=== PATIENT | female | born 1985 | race African-American/Black ===

== ENCOUNTER 2020-09-30 16:16 | Outpatient (CLI) | payer OTHER, SELFPAY | END 2020-09-30 16:17 | disposition home or self-care (01) | LOC: ANHLAB 16:19 | PROVIDERS: Visit Provider Obstetrics & Gynecology | DX: L65.9 Nonscarring hair loss, unspecified (principal); N95.1 Menopausal and female climacteric states | CPT/HCPCS: 36415; 83001; 86038; 86039 ==

== ENCOUNTER 2025-10-01 12:54 | Emergency (ER) | payer BC, SELFPAY ==
[2025-10-01 13:13] VITALS: BP 166/95; PULSE 103; RESP 16; TEMP 36.3; O2SAT 100
[2025-10-01 14:16] LABS: EDCOVIDSCREEN Negative (Negative); EDINFLUASCREEN Negative (Negative); EDINFLUBSCREEN Negative (Negative); EDSTREPNEGPOS1 Negative (Negative)
--- NOTE | 2025-10-01 14:22 | ED.URI ---
HPI - URI/Sore Throat General Chief Complaint: Dental/Oral Stated Complaint: Headache/Sore Throat Time Seen by Provider: 10/01/25 14:14 Source: patient and RN notes reviewed Mode of arrival: ambulatory Limitations: no limitations History of Present Illness HPI Narrative: 40-year-old female patient presents today with a 6 day history of sore throat, postnasal drip, dry cough, body aches, headache, fatigue. She was exposed to COVID by a family member several days ago. Denies fever, nasal congestion, shortness of breath. She has tried Tylenol and naproxen with mild relief and currently rates her discomfort 8/10. No history of asthma or COPD. She is also complaining of right upper dental pain due to a broken tooth for several months. The pain has returned 2 days ago. She has to wait 3 more weeks for insurance to make a dental appointment due to a new job. Related Data Home Medications ?Medication ?Instructions ?Recorded ?Confirmed ?Last Taken ?Type cholecalciferol (vitamin D3) 1,250 1,250 mcg PO WEEKLY 09/30/20 10/02/20 Unknown History mcg (50,000 unit) capsule dextroamphetamine-amphetamine 20 20 mg PO DAILY 09/30/20 10/02/20 Unknown History mg tablet (Adderall) hydrochlorothiazide 12.5 mg capsule mg 10/01/25 Unknown History valacyclovir 500 mg tablet mg 10/01/25 Unknown History Allergies Allergy/AdvReac Type Severity Reaction Status Date / Time RAW TOMATOES Allergy Mild HIVES Uncoded 07/18/13 16:04 METOCLOPRAMIDE HCL Allergy Unknown feels Uncoded 06/30/14 22:29 like crwling out of skin PMFSH Past Medical History Medical History Miscarriage History of umbilical hernia History of hypertension Depression Anemia Surgical History Surgical History History of tubal ligation History of dilation and curettage History of colposcopy History of 3 sections Previous section x 3 Social History Social History Smoking status: Never smoker Second hand tobacco smoke exposure: No Alcohol intake: never Comments At time of signature, I have reviewed and agree with nursing past medical, surgical, social and family history unless otherwise noted. Please see nursing chart for further information. There is no relevant family history pertinent to the presenting complaint Exam Narrative: GENERAL: Mildly ill-appearing, well-nourished, and in no acute distress. HEAD: Normocephalic, atraumatic. EYES: EOMI. No redness or drainage. Conjunctivae normal. ENT: Mucous membranes pink and moist. Nares normal. No rhinorrhea. TMs normal bilaterally. Throat normal. Uvula midline. Tooth 3 is broken off and brown in color. No surrounding edema or erythema. NECK: Normal AROM. Supple. No lymphadenopathy. CHEST: No respiratory distress. Clear to auscultation. HEART: Regular rate and rhythm. No murmur appreciated. EXTREMITIES: Normal range of motion. No edema. SKIN: Warm, dry, no rash. Capillary refill normal. Normal skin turgor. NEURO: No focal deficits. Alert and oriented x3. Gait steady. PSYCH: Normal affect. No signs of depression or anxiety. Course Course Level of Care: Express Care Visit Vital Signs Vital signs: Vital Signs Temperature 97.4 F L 10/01/25 13:13 Pulse Rate 103 H 10/01/25 13:13 Respiratory Rate 16 10/01/25 13:13 Blood Pressure 166/95 H 10/01/25 13:13 Pulse Oximetry 100 10/01/25 13:13 Temperature 97.4 F L 10/01/25 13:13 Pulse Rate 103 H 10/01/25 13:13 Respiratory Rate 16 10/01/25 13:13 Blood Pressure 166/95 H 10/01/25 13:13 Pulse Oximetry 100 10/01/25 13:13 Reviewed MDM - URI/Sore Throat MDM Narrative Medical decision making narrative: 40-year-old female patient presents today with a 6 day history of sore throat, postnasal drip, dry cough, body aches, headache, fatigue. She was exposed to COVID by a family member several days ago. Denies fever, nasal congestion, shortness of breath. She has tried Tylenol and naproxen with mild relief and currently rates her discomfort 8/10. No history of asthma or COPD. She is also complaining of right upper dental pain due to a broken tooth for several months. The pain has returned 2 days ago. She has to wait 3 more weeks for insurance to make a dental appointment due to a new job. Upon exam, patient is mildly ill appearing with tooth 3 Broken in brown in color. Negative influenza, COVID, and rapid strep test. Strep culture pending. Sick Symptoms likely viral in etiology. Discussed [id number] medication use and duration of illness. Patient will be sent over a 10 day course of amoxicillin for her broken and likely infected tooth. Anticipatory guidance given. Patient will make a dental appointment as soon as she has dental insurance. Vital signs stable. Differential Diagnosis Differential diagnosis: Likely upper respiratory infection, viral infection, influenza and other (Strep throat, COVID-19, dental fracture, dental abscess) Lab Data Attestation: I reviewed the patient's lab results. Labs: Lab Results 10/01/25 Range/Units 13:07 POC Influenza A Ag Negative (Negative) POC Influenza B Ag Negative (Negative) POC SARS CoV-2 Ag Negative (Negative) POC Grp A Strep Screen Negative (Negative) Critical Care Time Critical Care Time Critical Care Time: No Discharge Plan Discharge Clinical Impression: Infected tooth Upper respiratory infection Qualifiers: URI type: unspecified URI Qualified Code(s): J06.9 - Acute upper respiratory infection, unspecified Patient Disposition: Home Condition: Stable Instructions: Antibiotic Form, Upper Respiratory Infection (DC) Additional Instructions: Your sick symptoms are likely due to a viral illness, which is not treated with antibiotics. Virus symptoms can last for up to 7-10days. Take Tylenol or ibuprofen for pain or fever. Rest and stay hydrated. Follow up with your PCP in 5 days if symptoms are not improving. Go to the ER immediately if you develop shortness of breath, difficulty swallowing, or any other concerning symptoms. Please take the amoxicillin as prescribed for your dental pain/infection. Follow-up with a dentist as soon as possible for further evaluation and treatment. Patient Language: Portuguese Prescriptions: New amoxicillin 875 mg tablet 875 mg PO Q12H 10 Days Qty: 20 0RF No Action valacyclovir 500 mg tablet hydrochlorothiazide 12.5 mg capsule dextroamphetamine-amphetamine [Adderall] 20 mg tablet 20 mg PO DAILY cholecalciferol (vitamin D3) 1,250 mcg (50,000 unit) capsule 1,250 mcg PO WEEKLY Follow-up/Referrals: PHYSICIAN,[facility] [Primary Care Provider, Internal Medicine] Stand Alone Forms: Work/School Release IP Time of Disposition: 14:29
== END 2025-10-01 14:35 | disposition home or self-care (01) ==
PROVIDERS: Emergency Provider Nurse Practitioner
DX: K04.7 Periapical abscess without sinus (principal); J06.9 Acute upper respiratory infection, unspecified; I10 Essential (primary) hypertension; Z20.822 Contact with and (suspected) exposure to COVID-19
CPT/HCPCS: 87081; 87426; 87804; 87880; 99213; G0463